=== PATIENT | female | born 1945 | race Caucasian/White ===

== ENCOUNTER 2017-01-17 09:27 | Outpatient (CLI) | payer MEDICARE ==
[2017-01-17 12:24] LABS: #Basophils 0.1 thou/uL (0.0-0.2); #Eosinphils 0.2 thou/uL (0.0-0.7); #Lymphocytes 2.1 thou/uL (1.20-3.40); #Monocytes 0.4 thou/uL (0.11-0.59); %Eosinophils 3.4 % (0.0-10.0); %Lymphocytes 37.3 % (21.0-51.0); %Monocytes 6.1 % (0.0-10.0); %Neutrophils 52.2 % (42.0-75.0); Hemoglobin 13.8 g/dL (12.0-16.0); Mean Corpuscular HGB CONC 33.3 g/dL (32.0-36.0); Mean Corpuscular Hemoglobin 31.3 pg (27.0-31.0); Mean Platelet Volume 6.4 fL (7.4-10.4); Platelet Count 181 thou/uL (130-400); RBC Distribution Width 12.3 % (11.5-14.5); Red Blood Cell (RBC) Count 4.43 mill/uL (4.20-5.40); White Blood Cell (WBC) Count 5.7 thou/uL (4.8-10.8)
[2017-01-17 12:30] LABS: Bilirubin Negative (Negative); Blood, Urine Trace (Negative); Clarity Clear (Clear); Glucose, Urine (Dipstick) Negative (Negative); Leukocyte Trace (Negative); Nitrite Negative (Negative); Protein, Urine (Dipstick) Negative (Neg-Trace); Specific Gravity, Urine 1.015 (1.005-1.030); Urobilinogen 0.2 mg/dL (0.2-1.0)
[2017-01-17 12:48] LABS: ALT (SGPT) 13 U/L (0-55); AST (SGOT) 25 U/L (5-34); Albumin 4.2 g/dL (3.4-4.8); Alkaline Phosphatase 64 U/L (40-150); Anion Gap 11 mmol/L (10-20); BUN (Urea Nitrogen) 19 mg/dL (9.8-20.1); Bilirubin, Total 0.5 mg/dL (0.2-1.2); Calc. Creatinine Clearance 0 mL/min (70-130); Calcium 9.4 mg/dL (7.8-10.44); Carbon Dioxide 29 mmol/L (23-31); Cardiac Risk 2.9 (Less than 4.5); Chloride 104 mmol/L (98-107); Cholesterol 158 mg/dL (< 200 Desired); Estimated GFR-MDRD 57; Globulin 2.8 g/dL (2.4-3.5); Glucose 97 mg/dL (80-115); HDL Cholesterol 54 mg/dL (>60 Neg Risk); LDL Cholesterol, Calculated 87 mg/dL; Potassium 5.4 mmol/L (3.5-5.1); Sodium 139 mmol/L (136-145); Triglycerides 83 mg/dL (Less than 150)
[2017-01-17 12:52] LABS: Bacteria/HPF Rare-Few HPF (None Seen); RBC/HPF 0-3 HPF (0-3); Squamous Epithelial 0-3 HPF (0-3); WBC/HPF 0-3 HPF (0-3)
== END 2017-01-17 09:28 ==
LOC: NAVSJIPCSP 09:27
PROVIDERS: ATTEND Internal Medicine
DX: E78.5 Hyperlipidemia, unspecified (principal); K21.0 Gastro-esophageal reflux disease with esophagitis; Z79.899 Other long term (current) drug therapy
CPT/HCPCS: 36415; 80053; 80061; 81003; 81015; 85025

== ENCOUNTER 2017-04-26 08:04 | Outpatient (CLI) | payer MEDICARE, OTHER ==
[2017-04-26 08:48] LABS: Cardiac Risk 3.1 (Less than 4.5); Cholesterol 174 mg/dl (< 200 Desired); HDL Cholesterol 56 mg/dL (>60 Neg Risk); LDL Cholesterol, Calculated 100 mg/dL; Potassium 3.9 mmol/L (3.5-5.1); Triglycerides 88 mg/dL (Less than 150)
[2017-04-26 18:58] LABS: Hep C IgG Ab Non-Reactive (NonReactive)
== END 2017-04-26 08:05 | disposition home or self-care (01) ==
LOC: NAVSJIPCSP 08:04
PROVIDERS: ATTEND Internal Medicine
DX: E78.5 Hyperlipidemia, unspecified (principal); E87.5 Hyperkalemia; Z72.89 Other problems related to lifestyle
CPT/HCPCS: 36415; 80061; 84132; 86803

== ENCOUNTER 2017-08-03 10:33 | Outpatient (CLI) | payer MEDICARE, OTHER ==
--- NOTE | 2017-08-03 15:08 | CT ---
CT CHEST NONCONTRAST: Date: 08/03/17 HISTORY: Lung nodule. Abnormal chest radiograph. Iodine allergy. FINDINGS: Lungs are hyperinflated. Linear scarring is present at the left lateral lung base. At the right ante rior medial costophrenic angle, a hemispherical well circumscribed soft tissue density abuts the ple ura and is 1.1 cm x 0.7 cm greatest diameter on the axial images. It has the appearance of mild atel ectasis. Patient's iodine allergy precluded IV contrast administration. Nonenlarged, nonspecific lymph nodes are scattered about the mediastinum. IMPRESSION: 1. Small parenchymal nodule at the right anterior medial lung base, abutting the pleura, possibly r epresenting focal atelectasis. Please consider follow-up CT in 6 months to evaluate for stability. 2. COPD with linear scarring at the left lung base. POS: [facility]
== END 2017-08-03 10:34 | disposition home or self-care (01) ==
LOC: NAV CT 10:33
DX: R93.8 Abnormal findings on diagnostic imaging of other specified body structures (principal); J44.9 Chronic obstructive pulmonary disease, unspecified; R91.1 Solitary pulmonary nodule
CPT/HCPCS: 71250

== ENCOUNTER 2024-08-06 12:15 | Emergency (ER) | payer MEDICARE, OTHER ==
[2024-08-06 12:50] LABS: #Basophils 0.1 thou/uL (0.0-0.2); #Lymphocytes 3.1 thou/uL (1.20-3.40); #Monocytes 0.7 thou/uL (0.11-0.59); #Neutrophils 6.3 thou/uL (1.40-6.50); %Basophils 0.9 % (0.0-1.0); %Eosinophils 0.4 % (0.0-10.0); %Lymphocytes 30.3 % (21.0-51.0); %Monocytes 6.8 % (0.0-10.0); %Neutrophils 61.7 % (42.0-75.0); Hematocrit 46.3 % (36.0-47.0); Hemoglobin 15.3 g/dL (12.0-16.0); Mean Corpuscular Hemoglobin 31.2 pg (27.0-31.0); Mean Corpuscular Volume 94.6 fl (78.0-98.0); Mean Platelet Volume 8.7 fL (7.4-10.4); Platelet Count 224 10x3/uL (130-400); RBC Distribution Width 11.6 % (11.5-14.5); Red Blood Cell (RBC) Count 4.89 mill/uL (4.20-5.40); White Blood Cell (WBC) Count 10.2 10x3/uL (4.8-10.8)
[2024-08-06] MEDS ORDERED: Aspirin Chewable 81 MG TAB ONE (12:57)
[2024-08-06] MEDS ORDERED: Nitroglycerin 0.4 MG TAB 1 EACH ONE ×2 (12:58→13:12)
[2024-08-06] MEDS ORDERED: Sodium Chloride 0.9% 1,000 ML ONE (12:58)
[2024-08-06 12:59] LABS: INR-International Normal Ratio 1.1
[2024-08-06 13:00] LABS: ALT (SGPT) 22 U/L (8-55); AST (SGOT) 30 U/L (5-34); Albumin 4.1 g/dL (3.4-4.8); Alkaline Phosphatase 79 U/L (40-110); Anion Gap 20 mmol/L (10-20); BUN (Urea Nitrogen) 12 mg/dL (9.8-20.1); Bilirubin, Total 0.8 mg/dL (0.2-1.2); Calc. Creatinine Clearance 0 mL/min (70-130); Calcium 9.7 mg/dL (7.8-10.44); Carbon Dioxide 20 mmol/L (23-31); Chloride 97 mmol/L (98-107); Estimated GFR 70; Glucose 132 mg/dL (83-110); Potassium 3.9 mmol/L (3.5-5.1); Protein, Total 7.1 g/dL (5.8-8.1); Sodium 133 mmol/L (136-145)
[2024-08-06 13:02] LABS: D-Dimer Test Less than 0.27 mcg/mL (0.27-0.43)
[2024-08-06 13:04] LABS: Troponin I Less than 0.010 ng/mL (< 0.028)
[2024-08-06] MEDS ORDERED: Nitroglycerin 2% Ointment 1 INCH/1 GM Packet ONE (13:46)
[2024-08-06 16:04] LABS: Troponin I Less than 0.010 ng/mL (< 0.028)
== END 2024-08-06 17:10 | disposition short-term general hospital (02) ==
LOC: NAV ERS 12:15
DX: R07.9 Chest pain, unspecified (principal); I48.91 Unspecified atrial fibrillation; E78.5 Hyperlipidemia, unspecified; I10 Essential (primary) hypertension; Z79.01 Long term (current) use of anticoagulants; Z79.899 Other long term (current) drug therapy
CPT/HCPCS: 71046; 80053; 83880; 84484 ×2; 85025; 85379; 85610; 85730; 93005; J7030; 36415; 96360; 96361